=== PATIENT | male | born 1995 | race Two or more races ===

== ENCOUNTER 2020-04-08 06:04 | Emergency (ER) | payer MEDICAID ==
[~2020-04-08] VITALS: Ht 175.3 cm; Wt 87.5 kg
[2020-04-08 06:14] VITALS: Ht 175.3 cm; Wt 87.5 kg
[2020-04-08] MEDS ORDERED: RINGWORM14.2 GM TOP (06:30)
[2020-04-08 06:46] VITALS: BP 129/88
== END 2020-04-08 06:46 | disposition home or self-care (01) ==
LOC: ED 06:04
DX: R21 Rash and other nonspecific skin eruption (principal); L29.9 Pruritus, unspecified